=== PATIENT | male | born 1980 | race Caucasian/White ===

== ENCOUNTER 2019-05-13 14:04 | Emergency (ER) | payer MEDICAID ==
[~2019-05-13] VITALS: Ht 177.8 cm; Wt 86.6 kg
[~2019-05-13 14:04] MED LIST: CYCL-1 PO; medical marijuana IH
[2019-05-13] MEDS ORDERED: DOXY100T2 PO (15:08)
[2019-05-13] MEDS ORDERED: MUPI22OI30 TOP (15:08)
[2019-05-13 15:37] VITALS: BP 157/97
== END 2019-05-13 15:38 | disposition home or self-care (01) ==
LOC: ER 14:05
DX: L02.214 Cutaneous abscess of groin (principal); G89.29 Other chronic pain; Z86.14 Personal history of Methicillin resistant Staphylococcus aureus infection; Z79.899 Other long term (current) drug therapy
CPT/HCPCS: 99283

== ENCOUNTER 2021-04-13 20:16 | Emergency (ER) | payer MEDICAID ==
[~2021-04-13] VITALS: Ht 177.8 cm; Wt 63.0 kg
[~2021-04-13 20:16] MED LIST changes: +DOXY100T2 PO
[2021-04-13] MEDS ORDERED: TETanus/Pertussis (Acell)/Diphther VAC/PF (Tdap-Adult) 0.5ml syringe IMVAC ONE (22:00)
[2021-04-13] MEDS ORDERED: LIDOcaine 1% 30ml preserv. free vial IJ ONE (22:00)
[2021-04-13] MEDS ORDERED: HYDR-3965 PO (23:52)
[2021-04-13] MEDS ORDERED: CEPH-585 PO (23:52)
[2021-04-13] MEDS ORDERED: cephalexin 250mg capsule PO ONE (23:55)
[2021-04-14 00:33] VITALS: BP 138/72
== END 2021-04-14 00:36 | disposition home or self-care (01) ==
LOC: ER 20:17
DX: S68.111A Complete traumatic metacarpophalangeal amputation of left index finger, initial encounter (principal); G89.29 Other chronic pain; F12.90 Cannabis use, unspecified, uncomplicated; Z86.14 Personal history of Methicillin resistant Staphylococcus aureus infection; Z86.19 Personal history of other infectious and parasitic diseases; Z56.0 Unemployment, unspecified; Z72.89 Other problems related to lifestyle; Z79.2 Long term (current) use of antibiotics; Z79.899 Other long term (current) drug therapy; Z89.022 Acquired absence of left finger(s); W26.9XXA Contact with unspecified sharp object(s), initial encounter; Y93.E9 Activity, other interior property and clothing maintenance; Y92.89 Other specified places as the place of occurrence of the external cause; Y99.8 Other external cause status
CPT/HCPCS: 12001; 73130; 90715; 99283; J2001

== ENCOUNTER 2021-07-05 13:11 | Emergency (ER) | payer MEDICAID, OTHER ==
[~2021-07-05] VITALS: Ht 177.8 cm; Wt 77.3 kg
[~2021-07-05 13:11] MED LIST changes: +CEPH-585 PO
[2021-07-05 13:15] VITALS: BP 113/65
[2021-07-05] MEDS ORDERED: IBUP-1984 PO (17:31)
== END 2021-07-05 17:41 | disposition home or self-care (01) ==
LOC: ER 13:11
DX: M25.532 Pain in left wrist (principal); F12.90 Cannabis use, unspecified, uncomplicated; G89.29 Other chronic pain; Z86.14 Personal history of Methicillin resistant Staphylococcus aureus infection; Z86.19 Personal history of other infectious and parasitic diseases; Z56.0 Unemployment, unspecified; Z72.89 Other problems related to lifestyle
CPT/HCPCS: 73110; 99283

== ENCOUNTER 2022-03-22 17:14 | Emergency (ER) | payer MEDICAID ==
[~2022-03-22] VITALS: Ht 177.8 cm; Wt 75.0 kg
[2022-03-22 17:49] VITALS: BP 168/95
[2022-03-22] MEDS ORDERED: HYDR-3965 PO (21:03)
[2022-03-22] MEDS ORDERED: SULF1TAB49 PO (21:03)
[2022-03-22] MEDS ORDERED: sulfamethoxazole/trimethoprim DS (800/160mg) tablet PO ONE (21:10)
[2022-03-22] MEDS ORDERED: HYDROcodone/acetaminophen 5mg/325mg tablet PO ONE (21:10)
[2022-04-01] MEDS ORDERED: ACET650T58 PO (19:59)
[2022-04-01] MEDS ORDERED: CLIN300C54 PO (19:59)
[2022-04-01] MEDS ORDERED: MUPI22OI30 TOP (22:16)
== END 2022-03-22 21:25 | disposition home or self-care (01) ==
LOC: ER 17:15
DX: L03.011 Cellulitis of right finger (principal); L03.012 Cellulitis of left finger; G89.29 Other chronic pain; M54.9 Dorsalgia, unspecified; Z86.14 Personal history of Methicillin resistant Staphylococcus aureus infection; Z79.899 Other long term (current) drug therapy; Z79.2 Long term (current) use of antibiotics
CPT/HCPCS: 99283

== ENCOUNTER 2022-03-25 13:50 | Emergency (ER) | payer MEDICAID ==
[~2022-03-25] VITALS: Ht 177.8 cm; Wt 73.0 kg
[~2022-03-25 13:50] MED LIST changes: +SULF1TAB49 PO
[2022-03-25 14:00] VITALS: BP 140/102
[2022-03-25] MEDS ORDERED: LIDOcaine 1% 30ml preserv. free vial IJ ONE (14:40)
[2022-03-25] MEDS ORDERED: HYDR-3965 PO (15:56)
[2022-04-01] MEDS ORDERED: ACET650T58 PO (19:59)
[2022-04-01] MEDS ORDERED: CLIN300C54 PO (19:59)
[2022-04-01] MEDS ORDERED: MUPI22OI30 TOP (22:16)
== END 2022-03-25 16:29 | disposition home or self-care (01) ==
LOC: ER 13:51
DX: L03.012 Cellulitis of left finger (principal); L03.011 Cellulitis of right finger; G89.29 Other chronic pain; M54.9 Dorsalgia, unspecified; Z86.14 Personal history of Methicillin resistant Staphylococcus aureus infection; F12.10 Cannabis abuse, uncomplicated; Z56.0 Unemployment, unspecified; Z79.1 Long term (current) use of non-steroidal anti-inflammatories (NSAID); Z79.2 Long term (current) use of antibiotics
CPT/HCPCS: 10061; 99283; J7030; A6258; A6449

== ENCOUNTER 2022-03-28 12:44 | Emergency (ER) | payer MEDICAID ==
[~2022-03-28] VITALS: Ht 177.8 cm; Wt 160.0 kg
[~2022-03-28 12:44] MED LIST changes: +HYDR-3965 PO
[2022-03-28 13:00] VITALS: BP 154/101
== END 2022-03-28 19:26 | disposition left against medical advice (07) ==
LOC: ER 12:44
DX: Z48.00 Encounter for change or removal of nonsurgical wound dressing (principal); Z53.21 Procedure and treatment not carried out due to patient leaving prior to being seen by health care provider

== ENCOUNTER 2022-03-31 14:51 | Emergency (ER) | payer MEDICAID ==
[~2022-03-31] VITALS: Ht 177.8 cm; Wt 72.7 kg
[2022-03-31 15:04] VITALS: BP 141/90
[2022-04-01] MEDS ORDERED: ACET650T58 PO (19:59)
[2022-04-01] MEDS ORDERED: CLIN300C54 PO (19:59)
[2022-04-01] MEDS ORDERED: MUPI22OI30 TOP (22:16)
== END 2022-03-31 16:50 | disposition left against medical advice (07) ==
LOC: ER 14:51
DX: M79.644 Pain in right finger(s) (principal); Z53.21 Procedure and treatment not carried out due to patient leaving prior to being seen by health care provider